=== PATIENT | female | born 1965 ===

== ENCOUNTER 2018-06-03 05:54 | Day surgery (SDC) | payer OTHER ==
[~2018-06-03 05:54] MED LIST: ATENOLOL25 MG PO; CATAFLAN PO; HYZAAR 50-12.51 EACH PO; MONTELUKAST SOD10 MG PO; NASONEX17 GM; SINGULAIR10 MG PO; [UNRECOGNIZED DRUG - OTHER] PO
[2018-06-03] MEDS ORDERED: PERCOCET 5-3251 EACH PO (09:59)
[2018-06-03] MEDS ORDERED: NABUMETONE500 MG PO (10:00)
== END 2018-06-03 11:10 | disposition home or self-care (01) ==
LOC: CIR.AMB 05:54
DX: M23.351 Other meniscus derangements, posterior horn of lateral meniscus, right knee (principal); M23.311 Other meniscus derangements, anterior horn of medial meniscus, right knee; M23.321 Other meniscus derangements, posterior horn of medial meniscus, right knee; M94.261 Chondromalacia, right knee; M65.861 Other synovitis and tenosynovitis, right lower leg; M13.861 Other specified arthritis, right knee